=== PATIENT | male | born 1945 | race Caucasian/White ===

== ENCOUNTER 2017-04-24 19:30 | Emergency (ER) | payer MEDICARE, BC ==
[2017-04-24] MEDS ORDERED: diphenhydrAMINE 50 MG/ML SDV IM ONE (19:47)
[2017-04-24] MEDS ORDERED: methylPREDNISolone Sodium Succinate 125 MG/2 ML SDV IVPUSH ONE (19:48)
--- NOTE | 2017-04-24 19:51 | EDM.PDOC ---
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 Denies any sob or difficulty breathing/swallowing Onset: Today, Sudden - Related Data Allergies Allergy/AdvReac Type Severity Reaction Status Date / Time No Known Allergies Allergy Verified 04/24/17 19:51 Home Meds: Home Meds Aspirin 04/24/17 [History] Citalopram [Citalopram HBr] 04/24/17 [History] Metoprolol Succinate 04/24/17 [History] Ranitidine [Zantac] 04/24/17 [History] Simvastatin [Zocor] 04/24/17 [History] ED ROS ALLERGIC REACTION - Review of Systems Review Of Systems: ROS reveals no pertinent complaints other than HPI. ED EXAM GENERAL NO PERIP PULSE - Physical Exam Exam: See Below Exam Limited By: No Limitations General Appearance: Alert, WD/WN, Anxious, Mild Distress Eye Exam: Bilateral Eye: EOMI Ears: Normal External Exam Nose: Normal Inspection, Normal Mucosa Throat/Mouth: Normal Inspection, Normal Oropharynx, No Airway Compromise Head: Atraumatic, Normocephalic Neck: Normal Inspection, Supple, Non-Tender, Full Range of Motion Respiratory/Chest: No Respiratory Distress, Lungs Clear, Normal Breath Sounds Cardiovascular: Normal Peripheral Pulses, No Murmur GI/Abdominal: Normal Bowel Sounds, Soft, Non-Tender Extremities: Normal Inspection, Normal Range of Motion Neurological: Alert, Oriented, CN II-XII Intact Psychiatric: Normal Affect, Normal Mood, Anxious Course - Vital Signs Text/Narrative:: Elgin is a 71-year-old male history of hypertension and high cholesterol who presents to the emergency Department today with complaints of full body itching after he was stung by a bee to his right lateral neck. Patient on arrival is in no acute distress from a respiratory standpoint, his lungs are clear, his intraoral exam is negative for any acute swelling or edema. Patient was immediately given IM Benadryl and IV Solu-Medrol for his symptoms. He denies any chest pain. Patient's history, medications, allergies were reviewed at bedside. Patient monitored here for nearly 1.5 hours with resolution of his itching and no further allergic response. He was discharged in stable condition, instructed to continue Zantac as prescribed and take Benadryl as needed every 6 hours for any return of itching. Patient was agreeable to plan of care, reasons to return to the ED discussed as well. Last Recorded V/S: Last Vital Signs Temp 36.5 C 04/24/17 19:57 Pulse 69 04/24/17 19:57 Resp 14 04/24/17 19:57 BP 167/75 H 04/24/17 19:57 Pulse Ox 97 04/24/17 19:57 - Orders/Labs/Meds Meds: Medications Discontinued Medications Generic Name Dose Route Start Last Admin Trade Name Chavezq PRN Reason Stop Dose Admin Diphenhydramine HCl 50 mg 04/24/17 19:47 04/24/17 19:59 Benadryl IM 04/24/17 19:48 50 mg ONETIME ONE Administration Methylprednisolone Sodium Succinate 125 mg 04/24/17 19:48 04/24/17 19:59 Solu-Medrol IVPUSH 04/24/17 19:49 125 mg ONETIME ONE Administration Departure - Departure Time of Disposition: 20:45 Disposition: Home, Self-Care 01 Clinical Impression: Bee sting reaction Qualifiers: Encounter type: initial encounter Injury intent: accidental or unintentional Qualified Code(s): T63.441A - Toxic effect of venom of bees, accidental ( unintentional), initial encounter - Discharge Information Instructions: Bee, Wasp, or Hornet Sting Referrals: PCP,None [Primary Care Provider] - Additional Instructions: Elgin, Take your Zantac when you get home. You can take Benadryl every 4-6 hours for any further itching. Return with any complications. Take care.
[2017-04-24 19:58] VITALS: BP 167/75
== END 2017-04-24 20:52 | disposition home or self-care (01) ==
LOC: JP.ED 19:30
DX: T63.441A Toxic effect of venom of bees, accidental (unintentional), initial encounter (principal); I10 Essential (primary) hypertension; E78.00 Pure hypercholesterolemia, unspecified; Z79.82 Long term (current) use of aspirin
CPT/HCPCS: 96372; 96374; 99283; J1200; J2930